=== PATIENT | female | born 2000 | race Caucasian/White ===

== ENCOUNTER 2021-09-02 03:17 | Inpatient (IN) | payer BC ==
[~2021-09-02 03:17] MED LIST: Bupivacaine 0.25% 10 ML SDV ONE
[2021-09-02] MEDS ORDERED: Lidocaine 1% 50 ML MDV INJECT ONE (03:33)
[2021-09-02] MEDS ORDERED: Acetaminophen 325 MG Tab PO PRN ×2 (03:33→16:11)
[2021-09-02] MEDS ORDERED: Ondansetron 4 MG/2 ML SDV IVPUSH PRN (03:33)
[2021-09-02] MEDS ORDERED: Nalbuphine 10 MG/1 ML Vial IVPUSH PRN (03:33)
[2021-09-02] MEDS ORDERED: Oxytocin/Lactated Ringers 10 UNIT/1,000 ML BAG IV SCH ×3 (03:45→08:30)
[2021-09-02] MEDS: Lactated Ringers 1,000 ML IV SCH ×4 (04:30→11:48)
[2021-09-02] MEDS ORDERED: ePHEDrine 50 MG/ML SDV IVPUSH PRN (05:27)
[2021-09-02] MEDS ORDERED: diphenhydrAMINE 50 MG/ML SDV IVPUSH PRN ×3 (05:27→08:05)
[2021-09-02] MEDS: Bupivacaine/fentaNYL/NS 100 ML Bag EPIDUR PRN ×2 (05:42→13:08)
[2021-09-02] MEDS: fentaNYL 100 MCG/2 ML SDV EPIDUR PRN ×2 (05:42→11:48)
[2021-09-02] MEDS ORDERED: EPINEPHrine 1 MG/ML SDV IM PRN ×2 (08:04→08:05)
[2021-09-02] MEDS ORDERED: Famotidine 20 MG/2 ML SDV IVPUSH PRN ×2 (08:04→08:05)
[2021-09-02] MEDS ORDERED: methylPREDNISolone Sodium Succinate 125 MG/2 ML SDV IVPUSH PRN ×2 (08:04→08:05)
[2021-09-02] MEDS: Albuterol/Ipratropium 3.0-0.5 MG/3 ML Neb Soln NEB PRN ×2 (08:10→13:57)
[2021-09-02] MEDS ORDERED: Acetaminophen 325 MG Tab PO ONE (08:11)
[2021-09-02] MEDS ORDERED: Sodium Chloride 0.9% 10 ML Syringe FLUSH SCH ×2 (08:15)
[2021-09-02] MEDS: Oseltamivir 75 MG Cap PO SCH ×2 (08:31→20:40)
[2021-09-02] MEDS ORDERED: Docusate Sodium 100 MG Cap PO PRN (16:11)
[2021-09-02] MEDS ORDERED: Benzocaine/Menthol 20%-0.5% Spray 78 GM Cannister TOP PRN (16:11)
[2021-09-02] MEDS ORDERED: Witch Hazel Medicated Pads 40/Jar TOP PRN (16:11)
[2021-09-02] MEDS: Sertraline 50 MG Tab PO SCH (20:40)
[2021-09-02] MEDS: Ibuprofen 600 MG Tab PO PRN (20:40)
[2021-09-03] MEDS: Oseltamivir 75 MG Cap PO SCH ×2 (08:41→21:32)
[2021-09-03] MEDS: Ibuprofen 600 MG Tab PO PRN ×2 (08:42→15:26)
[2021-09-03] MEDS: Albuterol/Ipratropium 3.0-0.5 MG/3 ML Neb Soln NEB PRN ×3 (08:45→22:17)
[2021-09-03] MEDS ORDERED: Measles, Mumps & Rubella Vaccine 0.5 ML SDV SUBCUT ONE (10:00)
[2021-09-03] MEDS: Sertraline 50 MG Tab PO SCH (21:32)
[2021-09-04] MEDS: Ibuprofen 600 MG Tab PO PRN ×2 (03:07→09:17)
[2021-09-04] MEDS: Albuterol/Ipratropium 3.0-0.5 MG/3 ML Neb Soln NEB PRN ×3 (03:46→13:17)
[2021-09-04] MEDS: Oseltamivir 75 MG Cap PO SCH (09:14)
== END 2021-09-04 17:00 | disposition home or self-care (01) | DRG 560 ==
LOC: JD.OBCHECK 03:17 → JD.OB 03:24 → JD.OBCHECK 03:33 → JD.OB 05:25 → OBSVTOIN 14:58 → JD.OB 14:59
PROVIDERS: ADMIT Obstetrics & Gynecology; ATTEND Obstetrics & Gynecology
PROC: 10E0XZZ Delivery of Products of Conception, External Approach (ICD-10-PCS; principal; 2021-09-02)
PROC: 0HQ9XZZ Repair Perineum Skin, External Approach (ICD-10-PCS; 2021-09-02)
PROC: 3E0R3BZ Introduction of Anesthetic Agent into Spinal Canal, Percutaneous Approach (ICD-10-PCS; 2021-09-02)
PROC: 10907ZC Drainage of Amniotic Fluid, Therapeutic from Products of Conception, Via Natural or Artificial Opening (ICD-10-PCS; 2021-09-02)
DX: O98.52 Other viral diseases complicating childbirth (principal); U07.1 COVID-19; O77.0 Labor and delivery complicated by meconium in amniotic fluid; Z3A.39 39 weeks gestation of pregnancy; Z37.0 Single live birth; O99.52 Diseases of the respiratory system complicating childbirth; J10.1 Influenza due to other identified influenza virus with other respiratory manifestations; O99.214 Obesity complicating childbirth
CPT/HCPCS: 01967; 36415; 51702; 59025; 59409; 85025; 86592; 86850; 86900; 86901; 87502-QW; 94640; A9270-GY; J2590; J3010; J3490; J7120; J7620-GY; M0247; Q0247; U0002

== ENCOUNTER 2024-03-30 02:57 | Inpatient (IN) | payer BC ==
[2024-03-30] MEDS ORDERED: Sodium Chloride 0.9% 10 ML Syringe FLUSH PRN (03:16)
[2024-03-30] MEDS ORDERED: Ondansetron 4 MG/2 ML SDV IVPUSH PRN (03:16)
[2024-03-30] MEDS ORDERED: Lidocaine 1% 50 ML MDV INJECT PRN (03:16)
[2024-03-30] MEDS ORDERED: Nalbuphine 10 MG/ML Syringe IVPUSH PRN (03:16)
[2024-03-30 03:33] LABS: BASOPHILS PERCENT AUTO 0.2 % (0.0-1.0); EOSINOPHILS ABSOLUTE AUTO 0.1 K/mm3 (0.0-0.4); EOSINOPHILS PERCENT AUTO 0.4 % (0.0-6.0); HEMATOCRIT 37.7 % (37.0-47.0); HEMOGLOBIN 12.7 gm/dl (12.0-16.0); IMMATURE GRAN ABSOLUTE AUTO 0.12 K/mm3 (0.00-0.05); IMMATURE GRAN PERCENT AUTO 0.7 % (0.0-0.4); LYMPHOCYTES ABSOLUTE AUTO 3.1 K/mm3 (1.0-4.8); LYMPHOCYTES PERCENT AUTO 17.3 % (24.0-44.0); MEAN CORPUSCULAR HEMOGLOBIN 27.2 pg (28.0-32.0); MEAN CORPUSCULAR HGB CONC 33.7 g/dl (32.0-36.0); MEAN CORPUSCULAR VOLUME 80.7 fl (83.0-99.0); MONOCYTES PERCENT AUTO 5.3 % (0.0-8.0); NEUTROPHILS ABSOLUTE AUTO 13.8 K/mm3 (1.8-7.7); NEUTROPHILS PERCENT AUTO 76.1 % (41.0-71.0); PLATELET COUNT,PLT 258 K/mm3 (150-400); RED BLOOD CELL COUNT 4.67 M/mm3 (4.10-5.30)
[2024-03-30] MEDS: Lactated Ringers 1,000 ML IV SCH (03:33)
[2024-03-30] MEDS: Oxytocin/0.9 % Sodium Chloride 30 UNIT/500 ML BAG IV SCH (07:01)
[2024-03-30] MEDS ORDERED: Docusate Sodium 100 MG Cap PO PRN (07:49)
[2024-03-30] MEDS ORDERED: Acetaminophen 325 MG Tab PO PRN (07:49)
[2024-03-30] MEDS: Witch Hazel Medicated Pads 40/Jar TOP PRN (07:53)
[2024-03-30] MEDS: Benzocaine/Menthol 20%-0.5% Spray 78 GM Cannister TOP PRN (07:53)
[2024-03-30] MEDS: Ibuprofen 600 MG Tab PO SCH (08:03)
[2024-03-30] MEDS ORDERED: Sodium Chloride 0.9% 10 ML Syringe FLUSH SCH (09:00)
[2024-03-30] MEDS: Sertraline 50 MG Tab PO SCH (23:10)
== END 2024-03-31 15:25 | disposition home or self-care (01) | DRG 560 ==
LOC: JD.OBCHECK 02:57 → JD.OB 03:00 → JD.OBCHECK 03:24 → JD.OB 03:25 → OBSVTOIN 06:59 → JD.OB 07:00
PROVIDERS: ADMIT Obstetrics & Gynecology; ATTEND Obstetrics & Gynecology
PROC: 10E0XZZ Delivery of Products of Conception, External Approach (ICD-10-PCS; principal; 2024-03-30)
PROC: 3E0334Z Introduction of Serum, Toxoid and Vaccine into Peripheral Vein, Percutaneous Approach (ICD-10-PCS; 2024-03-30)
DX: O26.893 Other specified pregnancy related conditions, third trimester (principal); Z37.0 Single live birth; Z3A.39 39 weeks gestation of pregnancy; Z88.1 Allergy status to other antibiotic agents; Z91.018 Allergy to other foods; Z79.51 Long term (current) use of inhaled steroids; Z79.899 Other long term (current) drug therapy; Z98.890 Other specified postprocedural states; Z90.89 Acquired absence of other organs; Z67.41 Type O blood, Rh negative
CPT/HCPCS: 36415; 59025; 59409; 85025; 85461; 86592; 86850; 86900; 86901; A9270-GY; J2790; J7120; J7999